=== PATIENT | female | born 1950 | race American Indian/Alaskan Native ===

== ENCOUNTER 2017-12-25 12:53 | Emergency (ER) | payer MEDICARE ==
[2017-12-25 13:12] VITALS: BMI 16.9
[2017-12-25 13:17] VITALS: BP 162/93; PULSE 68; RESP 18; TEMP 97.4; O2SAT 100
--- NOTE | 2017-12-25 13:36 | C.PDOC ---
History Of Present Illness 67-year-old female presents to the ED complaining of left arm pain for 1 year. She describes pain as intermittent and throbbing, mainly localized near the left shoulder. States she saw her primary doctor and had x-rays and an MRI that were unremarkable. Pain continues, prompting patient to come in for evaluation. She last saw her PMD on 12/08/17 and was given naproxen and gabapentin, which provides transient relief. Time Seen by Provider: 12/25/17 13:22 Chief Complaint (Nursing): Upper Extremity Problem/Injury History Per: Patient History/Exam Limitations: no limitations Onset/Duration Of Symptoms: Days Current Symptoms Are (Timing): Still Present Past Medical History Reviewed: Historical Data, Nursing Documentation, Vital Signs Vital Signs: Last Vital Signs Temp 97.4 F L 12/25/17 13:13 Pulse 68 12/25/17 13:13 Resp 18 12/25/17 13:13 BP 162/93 H 12/25/17 13:13 Pulse Ox 100 12/25/17 13:13 - Medical History PMH: HTN, Hypercholesterolemia Family History: States: No Known Family Hx - Social History Hx Alcohol Use: No Hx Substance Use: No - Immunization History Hx Tetanus Toxoid Vaccination: No Hx Influenza Vaccination: No Hx Pneumococcal Vaccination: No Review Of Systems Except As Marked, All Systems Reviewed And Found Negative. Cardiovascular: Negative for: Chest Pain Respiratory: Negative for: Shortness of Breath Musculoskeletal: Positive for: Arm Pain (left) Skin: Negative for: Lesions, Bruising Neurological: Negative for: Weakness, Numbness, Incoordination Physical Exam - Physical Exam Appears: Well, Non-toxic, No Acute Distress Skin: Warm, Dry, No Rash Head: Atraumatic, Normacephalic Eye(s): bilateral: Normal Inspection Neck: Normal ROM Chest: Symmetrical Respiratory: No Accessory Muscle Use, Other (speaking in full sentences) Extremity: Normal ROM (of left upper extremity, with full flexion and extension), No Tenderness, Capillary Refill (less than 2 sec), No Deformity, No Swelling Pulses: Left Radial: Normal, Right Radial: Normal Neurological/Psych: Oriented x3, Normal Speech Gait: Steady ED Course And Treatment O2 Sat by Pulse Oximetry: 100 (RA) Pulse Ox Interpretation: Normal Medical Decision Making Medical Decision Making: Impression: Left arm pain Initial Plan: Patient remains afebrile alert and oriented with stable vital signs during ER evaluation. Provided with prescription for Meloxicam. Patient feels comfortable going home and will be discharged. Patient given follow up instructions. Instructed to return to ER if symptoms worsen or new symptoms arise. Disposition Counseled Patient/Family Regarding: Diagnosis, Need For Followup, Rx Given - Disposition Referrals: Royal Chaney MD [Staff Provider] - Disposition: HOME/ ROUTINE Disposition Time: 13:35 Condition: STABLE Additional Instructions: Take pain medicine as needed Prescriptions: Meloxicam [Mobic] 7.5 mg PO DAILY #30 tab Instructions: Muscle and Bone Pain (DC) Forms: [employer] (Indonesian) - POA Present On Arrival: None - Clinical Impression Clinical Impression: Arm pain, left - PA / DATA SYSTEMS ANALYST / Resident Statement MD/DO has reviewed & agrees with the documentation as recorded. - Scribe Statement The provider has reviewed the documentation as recorded by the Scribe (Teresa Garcia) All medical record entries made by the Scribe were at my direction and pers onally dictated by me. I have reviewed the chart and agree that the record accurately reflects my personal performance of the history, physical exam, medical decision making, and the department course for this patient. I have also personally directed, reviewed, and agree with the discharge instructions and disposition.
== END 2017-12-25 14:00 | disposition home or self-care (01) ==
LOC: C.ER 12:53
DX: M79.602 Pain in left arm (principal)